=== PATIENT | female | born 2000 | race Caucasian/White ===

== ENCOUNTER 2023-04-30 07:15 | Outpatient (CLI) | payer OTHER ==
[2023-04-30 07:55] LABS: #Basophils 0.1 10x3/uL (0.0-0.2); #Eosinphils 0.3 10x3/uL (0.0-0.5); %Basophils 0.9 % (0.0-2.0); %Eosinophils 2.4 % (0.0-6.0); %Lymphocytes 30.9 % (18.0-47.0); %Monocytes 8.3 % (0.0-10.0); %Neutrophils 57.2 % (40.0-75.0); Hematocrit 40.6 % (34.9-44.5); Hemoglobin 13.4 g/dL (12.0-15.5); Mean Corpuscular Hemoglobin 28.8 pg (27.0-33.0); Mean Corpuscular Volume 87.1 fl (81.6-98.3); Mean Platelet Volume 9.9 fl (7.4-10.4); Platelet Count 291 10x3/uL (150-450); RBC Distribution Width 12.8 % (11.5-14.5); Red Blood Cell (RBC) Count 4.66 10x6/uL (3.90-5.03); White Blood Cell (WBC) Count 12.3 10x3/uL (3.5-10.5)
[2023-04-30 08:49] LABS: BHCG - Serum Negative (NEGATIVE); Pregs Control Background? CLEAR/WHITE (CLR/WHITE); Pregs Control Bar Appear? YES (CONTROL BAR)
[2023-04-30 08:56] LABS: ALT (SGPT) 33 U/L (8-55); AST (SGOT) 22 U/L (5-34); Albumin 4.4 g/dL (3.5-5.0); Alkaline Phosphatase 60 U/L (40-110); Anion Gap 12 mmol/L (10-20); BUN (Urea Nitrogen) 20 mg/dL (7.0-18.7); Bilirubin, Total 0.2 mg/dL (0.2-1.2); Calc. Creatinine Clearance 0 mL/min (70-130); Calcium 9.3 mg/dL (7.8-10.44); Carbon Dioxide 25 mmol/L (22-29); Chloride 105 mmol/L (98-107); Estimated GFR 93; Glucose 98 mg/dL (70-105); Protein, Total 7.4 g/dL (6.0-8.3); Sodium 138 mmol/L (136-145)
== END 2023-04-30 07:16 | disposition home or self-care (01) ==
LOC: LABBT 07:15
PROVIDERS: ATTEND Surgery
DX: Z01.818 Encounter for other preprocedural examination (principal); K80.20 Calculus of gallbladder without cholecystitis without obstruction
CPT/HCPCS: 80053; 84703; 85025; 93005; 93010

== ENCOUNTER 2023-05-11 05:52 | Day surgery (SDC) | payer OTHER ==
[2023-04-30 07:34] VITALS: BMI 29.6
[2023-05-11] MEDS ORDERED: Acetaminophen 500 MG TAB ONE (06:31)
[2023-05-11] MEDS ORDERED: PROPOFOL 20 ML ONE ×2 (06:47)
[2023-05-11] MEDS ORDERED: fentaNYL PF 100 MCG/2 ML SYRINGE ONE (06:47)
[2023-05-11] MEDS ORDERED: Rocuronium Bromide 10 MG/ML (10ML VIAL) ONE (06:47)
[2023-05-11] MEDS ORDERED: Lidocaine 2% PF 5 ML VIAL ONE (06:50)
[2023-05-11] MEDS ORDERED: Dexmedetomidine 200 MCG/2 ML VIAL ONE (06:58)
[2023-05-11] MEDS ORDERED: EPINEPHrine 1 MG/ML VIAL ONE (07:15)
[2023-05-11] MEDS ORDERED: Indocyanine Green 25 MG/10 ML VIAL ONE (07:15)
[2023-05-11] MEDS ORDERED: Bupivacaine 0.25% HCL 30 ML VIAL ONE (07:15)
[2023-05-11] MEDS ORDERED: cefOXitin 2 GM VIAL ONE (07:21)
[2023-05-11] MEDS ORDERED: Sodium Chloride 0.9% 100 ML ONE (07:21)
[2023-05-11] MEDS ORDERED: Dexamethasone 4 mg/ml Vial ONE (07:41)
[2023-05-11] MEDS ORDERED: Ketorolac Tromethamine 30 MG (1 mL) VIAL ONE (08:04)
[2023-05-11] MEDS ORDERED: Ondansetron PF 4 MG/2 ML Vial ONE (08:04)
[2023-05-11] MEDS ORDERED: Glycopyrrolate 0.2 MG/ML 5 ML SYRINGE ONE (08:05)
[2023-05-11] MEDS ORDERED: NEOSTIGMINE 3 MG/3 ML SYR 3 MG/3 ML SYRINGE ONE (08:05)
[2023-05-11] MEDS ORDERED: MINERAL OIL/WHITE PETROLATUM 3.5 GM TUBE ONE (08:06)
[2023-05-11] MEDS ORDERED: fentaNYL 50 mcg/mL 1 mL Vial ONE (08:35)
== END 2023-05-11 09:35 | disposition home or self-care (01) ==
LOC: SDC 05:52
PROVIDERS: ATTEND Surgery
PROC: 0FT44ZZ Resection of Gallbladder, Percutaneous Endoscopic Approach (ICD-10-PCS; principal; 2023-05-11)
DX: K80.10 Calculus of gallbladder with chronic cholecystitis without obstruction (principal)
CPT/HCPCS: 88304; C1889; J0171; J0665; J0694; J1100; J1885; J2001; J2405; J2704; J3010; J3490